=== PATIENT | female | born 1995 | race Caucasian/White ===

== ENCOUNTER 2021-06-26 17:42 | Emergency (ER) | payer MEDICAID ==
[~2021-06-26] VITALS: Ht 157.5 cm; Wt 64.4 kg
[2021-06-26] MEDS ORDERED: AUGMENTIN 875-1 EACH PO (20:33)
== END 2021-06-26 23:30 | disposition home or self-care (01) ==
LOC: ED 17:42
DX: R42 Dizziness and giddiness (principal)
CPT/HCPCS: 70450; 99284-25